=== PATIENT | male | born 1935 | race Caucasian/White ===

== ENCOUNTER 2017-02-10 10:02 | Outpatient (CLI) | payer MEDICARE, OTHER ==
[2017-02-10 10:20] LABS: BASOPHILS % 0.5 (0.0-1.5); EOSINOPHILS % 4.3 % (0.0-6.8); MEAN CORPUSCULAR HEMOGLOBIN 30.2 pg (28.0-34.0); MONOCYTES % 6.8 % (0.0-11.0); NEUTROPHILS # 2.8 # k/uL (1.4-7.7)
== END 2017-02-10 10:03 ==
LOC: MERGE 10:02 → LAB 10:02
PROVIDERS: ATTEND Family Medicine
DX: D50.9 Iron deficiency anemia, unspecified (principal)
CPT/HCPCS: 36415; 85025

== ENCOUNTER 2017-05-15 10:56 | Outpatient (CLI) | payer MEDICARE, OTHER ==
[2017-05-15 11:12] LABS: BASOPHILS % 0.9 (0.0-1.5); EOSINOPHILS % 4.8 % (0.0-6.8); MEAN CORPUSCULAR HEMOGLOBIN 31.3 pg (28.0-34.0); MEAN CORPUSCULAR VOLUME 94.9 fl (80.0-100.0); MONOCYTES % 6.9 % (0.0-11.0); NEUTROPHILS # 3.3 # k/uL (1.4-7.7)
[2017-05-15 12:10] LABS: eGFR (African) > 60; eGFR (Non-African) > 60
== END 2017-05-15 11:00 ==
LOC: LAB 10:56
PROVIDERS: ATTEND Family Medicine
DX: E03.9 Hypothyroidism, unspecified (principal); Z51.81 Encounter for therapeutic drug level monitoring
CPT/HCPCS: 36415; 80053; 84443; 85025

== ENCOUNTER 2017-07-12 15:34 | Outpatient (CLI) | payer MEDICARE, OTHER ==
[2017-07-15 00:08] VITALS: BP 111/64
== END 2017-07-12 15:35 ==
LOC: LAB 15:34
PROVIDERS: ATTEND Family Medicine
DX: Z79.899 Other long term (current) drug therapy (principal)
CPT/HCPCS: 36415; 80164

== ENCOUNTER 2017-07-14 20:20 | Emergency (ER) | payer MEDICARE, OTHER ==
[2017-07-14] MEDS ORDERED: 0.9 % SODIUM CHLORIDE 1,000 ML IV SCH (21:00)
[2017-07-14] MEDS ORDERED: 0.9 % SODIUM CHLORIDE 1,000 ML IV ONE (21:24)
[2017-07-14 21:35] LABS: MEAN CORPUSCULAR VOLUME 92.2 fl (80.0-100.0); MONOCYTES % 5.9 % (0.0-11.0); NEUTROPHILS # 3.3 # k/uL (1.4-7.7)
[2017-07-14] MEDS ORDERED: PHARMACY KEY 1 EACH EACH MC ONE (22:56)
[2017-07-14] MEDS ORDERED: FLUDROCORTISONE ACETATE 0.1 MG TABLET PO SCH (23:00)
[2017-07-15 00:08] VITALS: BP 111/64
--- NOTE | 2017-07-15 05:20 | ED Physician Documentation ---
Dizziness - HISTORIAN Historian: patient - HPI Stated Complaint: dizzines Chief Complaint: Dizziness Additional Information: weak, dizzy, worse when sitting or standing Timing: sudden onset Duration: constant Last known Well Date: 07/13/17 Last Known Well Time: 00:00 Severity: mild Associated Symptoms: weakness, light headedness Decreased Ability to Stand/ Walk: off balance, walks w/o assistance Usually: walks w/o assistance Worsened By: changing position Further Comments: no - ROS CONST: none EYES/ENT: none GI/: none MS/SKIN/LYMPH: none NEURO/PSYCH: none CVS/RESP: none - PAST HX Past History: other (Emmanuel's disease) Cardiac Disease: CAD Surgeries/Procedures: other (ortho, colon ressection) Immunizations: referred to PCP Allergies/Adverse Reactions: Allergies Allergy/AdvReac Type Severity Reaction Status Date / Time No Known Drug Allergies Allergy Verified 07/14/17 21:49 Home Medications: Ambulatory Orders Medication Instructions Recorded Divalproex Sodium [Divalproex 250 mg PO HS u2 01/20/17 Sodium Er] Divalproex Sodium [Divalproex 500 mg PO HS u2 01/20/17 Sodium Er] Quetiapine Fumarate 50 mg PO HS u2 01/20/17 Duloxetine HCl [Duloxetine HCl] 30 mg PO D 07/14/17 Flecainide Acetate [Tambocor] 50 mg PO D 07/14/17 Psyllium Seed [Metamucil] 1 packet PO PRN PRN 07/14/17 - SOCIAL HX Smoking History: non-smoker Alcohol Use: none Drug Use: none - FAMILY HX Family History: none - VITAL SIGNS Vital Signs: Vital Signs Temp Pulse Resp BP Pulse Ox 97.6 F 77 18 111/64 94 07/14/17 20:20 07/14/17 23:49 07/14/17 23:49 07/14/17 23:49 07/14/17 23:49 - REVIEWED ASSESSMENTS Nursing Assessment Reviewed: Yes Vitals Reviewed: Yes Progress - Results/Orders Results/Orders: CBC, CMP, PT/PTT/INR, UA, TROP, BNP, CXR, EKG ORDERED - Progress Progress: pt. given 1 liter NS and 0.1 mg Florinef p.o. with improved bp Critical Care Note - Critical Care Note Total Time (mins): 0 ED Results Lab/Radiology - Lab Results Lab Results: Lab Results 07/14/17 07/14/17 07/14/17 21:24 21:24 21:24 WBC RBC Hgb Hct MCV MCH MCHC RDW Plt Count Neut % (Auto) Lymph % (Auto) [place] % (Auto) Eos % (Auto) Baso % (Auto) Neut # (Auto) Lymph # (Auto) [place] # (Auto) Eos # (Auto) Baso # (Auto) Reactive Lymphs % Reactive Lymphs # PT 10.6 Seconds Seconds (9.4-11.6) INR 1.01 (0.9-1.2) APTT 26.7 Seconds Seconds (24.5-32.8) Sodium 136 mmol/L L mmol/L (137-145) Potassium 3.7 mmol/L mmol/L (3.5-5.1) Chloride 103 mmol/L mmol/L (98-107) Carbon Dioxide 24 mmol/L mmol/L (22-30) BUN 18 mg/dL mg/dL (9-20) Creatinine 1.50 mg/dL H mg/dL (0.66-1.25) Estimated Creat Clear 51 Est GFR ( Amer) 57 L (60 - ) Est GFR (Non-Af Amer) 47 L (60 - ) Glucose 138 mg/dL H mg/dL (74-106) Calcium 8.7 mg/dL mg/dL (8.4-10.2) Total Bilirubin 0.3 mg/dL mg/dL (0.2-1.3) AST 22 U/L U/L (15-46) ALT 22 U/L U/L (13-69) Alkaline Phosphatase 56 U/L U/L (38-126) Troponin I < 0.03 ng/mL L ng/mL (0.03-0.06) NT-Pro-B Natriuret Pep 246.6 pg/mL pg/mL (15.0-450.0) Total Protein 6.6 g/dL g/dL (6.3-8.2) Albumin 3.7 g/dL g/dL (3.5-5.0) 07/14/17 21:24 WBC 6.30 K/ul K/ul (4.00-12.00) RBC 4.36 M/ul M/ul (3.90-5.20) Hgb 13.1 g/dL g/dL (12.0-18.0) Hct 40.2 % % (37.0-53.0) MCV 92.2 fl fl (80.0-100.0) MCH 30.0 pg pg (28.0-34.0) MCHC 32.5 g/dL g/dL (30.0-36.0) RDW 13.4 % % (11.3-14.3) Plt Count 204 K/mm3 K/mm3 (130-400) Neut % (Auto) 52.8 % % (39.0-79.0) Lymph % (Auto) 36.8 % % (16.0-50.0) [place] % (Auto) 5.9 % % (0.0-11.0) Eos % (Auto) 2.0 % % (0.0-6.8) Baso % (Auto) 1.0 (0.0-1.5) Neut # (Auto) 3.3 # k/uL # k/uL (1.4-7.7) Lymph # (Auto) 2.3 # k/uL # k/uL (0.6-4.0) [place] # (Auto) 0.4 # k/uL # k/uL (0.0-0.9) Eos # (Auto) 0.1 # k/uL # k/uL (0.0-0.6) Baso # (Auto) 0.1 # k/uL # k/uL (0.0-0.5) Reactive Lymphs % 1.5 % % (0.0-5.0) Reactive Lymphs # 0.1 # k/uL # k/uL (0.0-0.8) PT INR APTT Sodium Potassium Chloride Carbon Dioxide BUN Creatinine Estimated Creat Clear Est GFR ( Amer) Est GFR (Non-Af Amer) Glucose Calcium Total Bilirubin AST ALT Alkaline Phosphatase Troponin I NT-Pro-B Natriuret Pep Total Protein Albumin - Radiology Radiology Impressions: cxr neg - Orders Orders: ED Orders Category Date Time Status Orthostatics 1T Care 07/14/17 20:[address] IV Lock 1T Care 07/14/17 20:45 Active CHEST 1 VIEW [RAD] Routine Exams 07/14/17 Ordered CBC/PLATELET/DIFF Routine Lab 07/14/17 21:24 Completed CMP Routine Lab 07/14/17 21:24 Completed NT-proBNP Routine Lab 07/14/17 21:24 Completed PT-INR Routine Lab 07/14/17 21:24 Completed PTT Routine Lab 07/14/17 21:24 Completed TROPONIN I (cTnI) Routine Lab 07/14/17 21:24 Completed URINALYSIS Routine Lab 07/14/17 21:00 Ordered 0.9 % Sodium Chloride [Normal Saline] 1,000 ml Med 07/14/17 21:00 Discontinued IV .Q1H 0.9 % Sodium Chloride [Normal Saline] 1,000 ml Med 07/14/17 21:24 Discontinued IV .STK-MED Fludrocortisone Acetate [Florinef] Med 07/14/17 23:00 Discontinued 0.1 mg PO DAILY [facility] Med 07/14/17 22:56 Discontinued 1 each MC .STK-MED ONE Oxygen Daily Oxygen 07/14/17 21:45 Ordered EKG WITH COMPARISON Routine Ther 07/14/17 Ordered Dizziness Physical Exam - Physical Exam General Appearance: no distress EENT: eye inspection normal, ENT inspection normal, pharynx normal, no signs of dehydration, ZURI, no nystagmus, TM's nml Neck: normal inspection, thyroid normal, supple Respiratory: no respiratory distress, breath sounds nml, chest non-tender CVS: reg rate & rhythm, heart sounds normal, equal pulses, murmur Abdomen: soft, no organomegaly, normal bowel sounds, no abdominal bruit, no distension, non-tender Skin: warm/dry, normal color Neuro: nml orientation, nml speech, nml cognition, mood/affect nml Extremities: non-tender, edema (mild) Cranial: nml as tested, no evidence of acute CVA Cerebellar: nml as tested Sensorimotor: motor nml, sensation nml Discharge Clincal Impression: Hypotension Qualifiers: Hypotension type: other hypotension type Qualified Code(s): I95.89 - Other hypotension Referrals: Andrea Corea MD [Primary Care Provider] - 2 Days Comments: discharged with script for Fludocort 0.1 mg #30 1 p.o.daily Condition: Stable Disposition: 01 HOME, SELF-CARE Decision to Admit: NO Decision Time: 23:40
[2017-07-15 06:22] LABS: APPEARANCE,URINE CLEAR (CLEAR); COLOR,URINE YELLOW (YELLOW); OCCULT BLOOD,URINE TRACE-INTACT (NEGATIVE); UROBILINOGEN URINE 0.2 Eu (0.2-1.0)
--- NOTE | 2017-07-15 06:53 | Diagnostic Imaging Report ---
SARA JACOBSON [facility] [address] [facility] [address] [place] [address]. [address] Report Submission Date: Jul 14, 2017 9:40:36 PM CDT Patient Study Name: BRYANT KWON Date: Jul 14, 2017 9:12:55 PM CDT Modality Type: CR Gender: M Description: CHEST : 31 Institution: [facility] Physician: SARA JACOBSON Ap portable upright radiographs of the chest Clinical history: Hypotension Technique: anterior /posterior portable upright Findings: There is cardiomegaly. The aorta is tortuous. Lung eduardo are clear. Arthritic changes are present the shoulders.. No pneumothorax or pleural effusion is seen. Impression: No acute pulmonary disease Cardiomegaly. Tortuous thoracic aorta Electronically signed on Jul 14, 2017 9:40:36 PM CDT by: Berry JACOBSON
== END 2017-07-14 23:49 | disposition home or self-care (01) ==
LOC: ED 20:20
DX: I95.89 Other hypotension (principal)
CPT/HCPCS: 71010; 80053; 81002; 83880; 84484; 85025; 85610; 85730; 87086; 93005; J7030; 87186; 96360; 99283; S1016

== ENCOUNTER → 2017-08-11 | Outpatient (CLI) | payer MEDICARE, OTHER ==
[2017-07-15 00:08] VITALS: BP 111/64
== END ==
LOC: LAB 07:52
PROVIDERS: ATTEND Internal Medicine Endocrinology, Diabetes & Metabolism
DX: I95.1 Orthostatic hypotension (principal); E03.9 Hypothyroidism, unspecified
CPT/HCPCS: 36415; 82533; 84439; 84443

== ENCOUNTER 2017-10-05 11:13 | Outpatient (CLI) | payer MEDICARE, OTHER ==
[2017-07-15 00:08] VITALS: BP 111/64
== END 2017-10-05 12:18 ==
LOC: LABRHC 11:13
PROVIDERS: ATTEND Physician Assistant
DX: N39.0 Urinary tract infection, site not specified (principal); R10.9 Unspecified abdominal pain
CPT/HCPCS: 87086; 87186

== ENCOUNTER 2017-10-11 10:53 | Outpatient (CLI) | payer MEDICARE, OTHER ==
[2017-07-15 00:08] VITALS: BP 111/64
[2017-10-11 11:02] LABS: APPEARANCE,URINE Clear (CLEAR); COLOR,URINE Yellow (YELLOW); OCCULT BLOOD,URINE Trace-lysed (NEGATIVE); PH URINE 7.5 (5.0 - 8.0); UROBILINOGEN URINE 0.2 Eu (0.2-1.0)
== END 2017-10-11 10:54 ==
LOC: LAB 10:53
PROVIDERS: ATTEND Family Medicine
DX: R30.0 Dysuria (principal)
CPT/HCPCS: 81002

== ENCOUNTER 2017-10-23 04:20 | Emergency (ER) | payer MEDICARE, OTHER ==
[2017-10-23] MEDS ORDERED: 0.9 % SODIUM CHLORIDE 1,000 ML IV ONE (04:50)
[2017-10-23] MEDS ORDERED: ACETAMINOPHEN 500 MG TABLET PO ONE (04:50)
[2017-10-23] MEDS ORDERED: GUAIFENESIN/CODEINE 10 ML S/F LIQUID DOSE CUP PO ONE (04:53)
[2017-10-23] MEDS ORDERED: IPRATROPIUM/ALBUTEROL SULFATE 3 ML AMPUL.NEB NEB STA (04:54)
[2017-10-23 04:59] LABS: BASOPHILS % 0.5 (0.0-1.5); EOSINOPHILS % 2.1 % (0.0-6.8); MEAN CORPUSCULAR HEMOGLOBIN 31.5 pg (28.0-34.0); MEAN CORPUSCULAR VOLUME 94.9 fl (80.0-100.0); MONOCYTES % 6.1 % (0.0-11.0); NEUTROPHILS # 6.3 # k/uL (1.4-7.7)
[2017-10-23 05:05] LABS: eGFR (African) > 60; eGFR (Non-African) 56
--- NOTE | 2017-10-23 05:40 | Diagnostic Imaging Report ---
[facility] [address] [facility].[address] [address] Report Submission Date: Oct 23, 2017 5:36:16 AM RENTAL CLERK Patient Study Name: BRYANT KWON Date: Oct 23, 2017 5:23:38 AM RENTAL CLERK Modality Type: CR Gender: M Description: CHEST : 31 Institution: [facility] Physician: UZMA SCOTT (PATTERN WEAVER) - ER The chest 2 views History: Cough, wheezing, fever Findings: Mild lingular atelectasis or a pericardial fat pad is observed. A loop recorder noted. The right lung is clear. Heart size is normal. There is no pleural effusion. Cervical fusion hardware is present. Calcified granulomas are noted. Impression: Mild lingular atelectasis versus pericardial fat pad. Electronically signed on Oct 23, 2017 5:36:16 AM RENTAL CLERK by: Shay JACOBSON
--- NOTE | 2017-10-23 05:45 | ED Physician Documentation ---
Upper Respiratory Symptoms - HISTORIAN Historian: patient - HPI Stated Complaint: Shortness of Breath Chief Complaint: Cough/ Upper Respiratory Onset: hours Context: multiple patients ( had influenza A) Associated Symptoms: fever, chills, productive cough Further Comments: yes (82 year old male patient brought in by son with complaints of SOB, cough, body aches and fever. Patient reports symptoms started last night. Son reports patient's was Influenza A positive.) - ROS CONST/EYES: denies: weakness, eye redness, eye itching, other CVS/RESP: none LYMPH: denies: leg swelling, rash, swollen glands, ankle swelling, other GI/: none NEURO/PSYCH: denies: fainting, dizziness, confusion, anxiety, depression, other MS/SKIN: denies: joint pain, muscle aches, rash, other - PAST HX Lung Disease: none PE Risk Factors: hypertension, other ("heart problem" - gluer Dr Hussein. ) Other History: other (seizures, ) Allergies/Adverse Reactions: Allergies Allergy/AdvReac Type Severity Reaction Status Date / Time No Known Drug Allergies Allergy Verified 07/14/17 21:49 Home Medications: Ambulatory Orders Medication Instructions Recorded Divalproex Sodium [Divalproex 250 mg PO HS u2 01/20/17 Sodium Er] Divalproex Sodium [Divalproex 500 mg PO HS u2 01/20/17 Sodium Er] Quetiapine Fumarate 25 mg PO HS u2 01/20/17 Duloxetine HCl [Duloxetine HCl] 60 mg PO D 07/14/17 Flecainide Acetate [Tambocor] 50 mg PO D 07/14/17 Psyllium Seed [Metamucil] 1 packet PO PRN PRN 07/14/17 Benzonatate [Tessalon Perles] 200 mg PO TID PRN #30 capsule 10/23/17 Oseltamivir Phosphate [Tamiflu] 75 mg PO BID #10 capsule 10/23/17 - SOCIAL HX Smoking History: cigarettes - FAMILY HX Family History: denies: none - VITAL SIGNS Vital Signs: Vital Signs Temp Pulse Resp BP Pulse Ox 98.1 F 75 28 H 176/98 95 10/23/17 04:20 10/23/17 05:30 10/23/17 04:20 10/23/17 04:20 10/23/17 05:30 - REVIEWED ASSESSMENTS Nursing Assessment Reviewed: Yes Vitals Reviewed: Yes Progress - Progress Progress: Patient is a poor medical technologist hematology. Son concerned about tamiflu and "patient's anticoagulant". Interactions checked with uptodate and epocrates. Clopidogrel may decrease serum concentrations of the active metabolite of Oseltamivir. Reviewed with patient and son. Reviewed discharge instructions with patient and son. Encouraged patient to return to ER if symptoms became worse. - EKG/XRAY/CT EKG: rhythm (SR, rate 83) ED Results Lab/Radiology - Lab Results Lab Results: Lab Results 10/23/17 10/23/17 04:50 04:50 WBC 11.40 K/ul K/ul (4.00-12.00) RBC 4.46 M/ul M/ul (3.90-5.20) Hgb 14.1 g/dL g/dL (12.0-18.0) Hct 42.4 % % (37.0-53.0) MCV 94.9 fl fl (80.0-100.0) MCH 31.5 pg pg (28.0-34.0) MCHC 33.2 g/dL g/dL (30.0-36.0) RDW 12.5 % % (11.3-14.3) Plt Count 208 K/mm3 K/mm3 (130-400) Neut % (Auto) 55.1 % % (39.0-79.0) Lymph % (Auto) 34.7 % % (16.0-50.0) [place] % (Auto) 6.1 % % (0.0-11.0) Eos % (Auto) 2.1 % % (0.0-6.8) Baso % (Auto) 0.5 (0.0-1.5) Neut # (Auto) 6.3 # k/uL # k/uL (1.4-7.7) Lymph # (Auto) 4.0 # k/uL # k/uL (0.6-4.0) [place] # (Auto) 0.7 # k/uL # k/uL (0.0-0.9) Eos # (Auto) 0.2 # k/uL # k/uL (0.0-0.6) Baso # (Auto) 0.1 # k/uL # k/uL (0.0-0.5) Reactive Lymphs % 1.5 % % (0.0-5.0) Reactive Lymphs # 0.2 # k/uL # k/uL (0.0-0.8) Sodium 136 mmol/L mmol/L (136-145) Potassium 4.0 mmol/L mmol/L (3.5-5.1) Chloride 99 mmol/L mmol/L (98-107) Carbon Dioxide 28 mmol/L mmol/L (22-30) BUN 20 mg/dL mg/dL (9-20) Creatinine 1.30 mg/dL H mg/dL (0.66-1.25) Estimated Creat Clear 59 Est GFR ( Amer) > 60 (60 - ) Est GFR (Non-Af Amer) 56 L (60 - ) Glucose 122 mg/dL H mg/dL (74-106) Calcium 9.4 mg/dL mg/dL (8.4-10.2) Total Bilirubin 0.2 mg/dL mg/dL (0.2-1.3) AST 24 U/L U/L (15-46) ALT 27 U/L U/L (13-69) Alkaline Phosphatase 94 U/L U/L (38-126) Total Protein 7.2 g/dL g/dL (6.3-8.2) Albumin 4.0 g/dL g/dL (3.5-5.0) - Radiology Radiology Impressions: The chest 2 views History: Cough, wheezing, fever Findings: Mild lingular atelectasis or a pericardial fat pad is observed. A loop recorder noted. The right lung is clear. Heart size is normal. There is no pleural effusion. Cervical fusion hardware is present. Calcified granulomas are noted. Impression: Mild lingular atelectasis versus pericardial fat pad. Electronically signed on Oct 23, 2017 5:36:16 AM MILITARY NURSE by: Shay Prara - Orders Orders: ED Orders Category Date Time Status Continuous EKG monitoring Q30M Care 10/23/17 04:50 Active Continuous Pulse Oximetry Q30M Care 10/23/17 04:[address] IV Lock 1T Care 10/23/17 04:50 Completed CHEST 2 VIEW [CHEST P.A.&LAT 2 VIEWS] [RAD] Stat Exams 10/23/17 Completed CBC/PLATELET/DIFF Stat Lab 10/23/17 04:50 Completed CMP Stat Lab 10/23/17 04:50 Completed INFLUENZA A&B Stat Lab 10/23/17 04:50 Ordered UA W/MICRO IF INDICATED Stat Lab 10/23/17 04:50 Ordered 0.9 % Sodium Chloride [Normal Saline] 1,000 ml Med 10/23/17 04:50 Discontinued IV NOW Acetaminophen [Tylenol Extra Strength] Med 10/23/17 04:50 Discontinued 1,000 mg PO NOW ONE Guaifenesin/Codeine Phosphate [Robitussin AC] Med 10/23/17 04:53 Discontinued 10 ml PO NOW ONE Ipratropium/Albuterol Sulfate [Duoneb] Med 10/23/17 04:54 Discontinued 3 ml NEB STAT STA EKG WITH COMPARISON Stat Ther 10/23/17 04:50 Ordered Upper Respiratory Symptoms - EXAM General Appearance: moderate distress EENT: eyes nml inspection, nml ENT inspection, lids & conjunct. nml, PERRL, ear nml, nose nml, pharynx nml, airway nml Respiratory: no resp. distress, breath sounds nml, no pain on inspiration, speaks full sentences, no pleuritic chest pain, other (productive cough) Abdomen: non-tender, no organomegaly, nml bowel sounds, no distention CVS: reg rate & rhythm, heart sounds normal, equal pulses, no murmur, no gallop , PMI nml, no JVD, no friction rub, 24 Skin: color nml, no rash, warm,dry Extremities: non-tender, normal range of motion, no evidence of injury, no edema , J, LUMBER ESTIMATOR Neuro/Psych: oriented x3, neuro intact, mood/affect nml, CN's nml as tested Discharge Clincal Impression: Influenza B Prescriptions: Benzonatate [Tessalon Perles] 200 mg PO TID PRN #30 capsule PRN Reason: Cough Oseltamivir Phosphate [Tamiflu] 75 mg PO BID #10 capsule Referrals: Andrea Corea MD [Primary Care Provider] - 2 Days Additional Instructions: Rest Have plenty of sleep and rest. Stay away from others while you have a cold or flu. Take simple painkillers Such as Tylenol or ibuprofen, to help relieve headaches, muscles aches and pains and fever. Keep hydrated (drink plenty of fluids) This will help keep your throat moist and replace fluid lost due to a fever and sweating. Plenty of water is best. Avoid caffeine and alcohol as they will make you more dehydrated. Eat soft food If you have a sore throat soft foods are easier to swallow. Foods such as chicken soup may help a sore throat and reduce mucous (sticky fluid). shift supervisor rn an over the counter decongestant such as pseudoped, dayquil and Nyquil at your pharmacy. You may want to try Vicks rub on your chest and/or feet. ( Caution: Dayquil and Nyquil contain 325mg of Tylenol/acetaminophen per tablespoon) Cough drops as needed for cough and sore throat. Increase your fluid intake juices, hot tea, non-caffeinated beverages Vitamin C may be helpful in decreasing the length of your cold. Use a humidifier in the room where you sleep. You can also sit in a steam filled bathroom 1-2 times a day. Tylenol every 4 hours 650mg -1000mg (do not exceed 4000mg in 24 hours) as needed for fever, pain and body aches. See your primary care doctor if your symptoms become worse or do not improve in the next 3-4 days. Condition: Stable Decision to Admit: NO Decision Time: 06:12
[2017-10-23 06:17] VITALS: BP 130/71
[2017-10-23 19:18] LABS: APPEARANCE,URINE CLEAR (CLEAR); COLOR,URINE YELLOW (YELLOW); OCCULT BLOOD,URINE 1+ (NEGATIVE)
[2017-10-23 19:19] LABS: PH URINE 7.5 (5.0 - 8.0); UROBILINOGEN URINE 0.2 Eu (0.2-1.0)
== END 2017-10-23 06:16 ==
LOC: ED 04:20
DX: J10.1 Influenza due to other identified influenza virus with other respiratory manifestations (principal); Z79.01 Long term (current) use of anticoagulants
CPT/HCPCS: 71020; 80053; 81002; 85025; 87400; 93005; 94640; 96360; 99283; J7030; S1016

== ENCOUNTER 2017-11-29 11:07 | Outpatient (CLI) | payer MEDICARE, OTHER ==
--- NOTE | 2017-11-29 12:20 | Diagnostic Imaging Report ---
PAULIE CISNEROS [facility] [address] [facility] [address] [address] Report Submission Date: Nov 29, 2017 12:12:10 PM SIMULATION TECHNICIAN Patient Study Name: BRYANT KWON Date: Nov 29, 2017 11:37:33 AM SIMULATION TECHNICIAN Modality Type: CR Gender: M Description: CHEST : 31 Institution: [facility] Physician: PAULIE CISNEROS Examination: PA and lateral chest. History: DYSPNEA AND WHEEZING, UNCERTAIN LENGTH OF TIME (Hx) / DYSPNEA, WHEEZING (DICOM Hx) / DYSPNEA, WHEEZING (Pt comments) Comparison exam: 23 October 2017 Findings: PA lateral chest demonstrate a normal cardiac and mediastinal silhouette. Mild tortuosity of the thoracic aorta. No focal infiltrate. No blunting of the costophrenic margins. Osseous structures are appropriate for age. Cervical fusion hardware. Impression: No acute appearing pulmonary process. Electronically signed on Nov 29, 2017 12:12:10 PM SIMULATION TECHNICIAN by: Daniel JACOBSON
--- NOTE | 2017-11-29 12:20 | Diagnostic Imaging Report ---
PAULIE CISNEROS [facility] [address] [facility] [address] [place] [address]. [address] Report Submission Date: Nov 29, 2017 12:10:29 PM MANAGER INTERMEDIATE Patient Study Name: BRYANT KWON Date: Nov 29, 2017 11:40:21 AM MANAGER INTERMEDIATE Modality Type: CR Gender: M Description: ABDOMEN : 31 Institution: [facility] Physician: PAULIE CISNEROS Examination: Abdomen series History: DIFFUSE ABDOMINAL PAIN, CONSTIPATION (Hx) / CONSTIPATION, DIFFUSE ABDOMINAL PAIN (DICOM Hx) / CONSTIPATION, DIFFUSE ABDOMINAL PAIN (Pt comments) Findings: 4 views obtained of the abdomen. No abnormal dilation of the large or small bowel. Air and stool throughout the large bowel. No suspicious calcification projecting over the renal fossa or the lower pelvic region. Splenic and pelvic calcifications. Degenerative spurring of the lumbar vertebral bodies. Impression: Normal amount of large bowel stool. No obstruction. No suspicious calcifications by plain film sensitivity. Electronically signed on Nov 29, 2017 12:10:29 PM MANAGER INTERMEDIATE by: Daniel JACOBSON
[2017-11-29 12:29] LABS: eGFR (African) > 60; eGFR (Non-African) > 60
== END 2017-11-29 11:10 ==
LOC: LAB 11:07
PROVIDERS: ATTEND Family Medicine
DX: R06.09 Other forms of dyspnea (principal); R06.2 Wheezing; R10.84 Generalized abdominal pain; K59.01 Slow transit constipation
CPT/HCPCS: 36415; 71020; 74020; 80053

== ENCOUNTER 2017-12-15 10:56 | Emergency (ER) | payer MEDICARE, OTHER ==
[2017-12-15] MEDS ORDERED: 0.9 % SODIUM CHLORIDE 1,000 ML IV ONE (11:16)
[2017-12-15 11:57] LABS: BASOPHILS % 0.6 (0.0-1.5); EOSINOPHILS % 3.7 % (0.0-6.8); MEAN CORPUSCULAR HEMOGLOBIN 31.4 pg (28.0-34.0); MEAN CORPUSCULAR VOLUME 94.3 fl (80.0-100.0); MONOCYTES % 5.2 % (0.0-11.0); NEUTROPHILS # 3.4 # k/uL (1.4-7.7)
[2017-12-15 12:25] LABS: eGFR (African) > 60; eGFR (Non-African) > 60
--- NOTE | 2017-12-15 12:59 | ED Physician Documentation ---
Dizziness - HISTORIAN Historian: patient, other (son and daughter in law) - HPI Stated Complaint: Dizzy Chief Complaint: Dizziness Timing: cannot confirm onset Associated Symptoms: weakness, light headedness Decreased Ability to Stand/ Walk: off balance Usually: uses a cane Worsened By: changing position Further Comments: yes (82 year old male patient brought in by family with complaints of dizziness. Family reports patient was so dizzy he could not get out of bed this morning. Family reports chronic history of dizziness and orthostatic hypotension.) - ROS CONST: none EYES/ENT: none GI/: none MS/SKIN/LYMPH: none NEURO/PSYCH: none CVS/RESP: none - PAST HX Past History: hypertension, other (dementia, alzheimers, bipolar) Cardiac Disease: other (chronic dizziness) Allergies/Adverse Reactions: Allergies Allergy/AdvReac Type Severity Reaction Status Date / Time No Known Drug Allergies Allergy Verified 12/15/17 11:54 Home Medications: Ambulatory Orders Medication Instructions Recorded Divalproex Sodium [Divalproex 250 mg PO HS u2 01/20/17 Sodium Er] Divalproex Sodium [Divalproex 500 mg PO HS u2 01/20/17 Sodium Er] Quetiapine Fumarate 25 mg PO HS u2 01/20/17 Duloxetine HCl [Duloxetine HCl] 60 mg PO D 07/14/17 Flecainide Acetate [Tambocor] 50 mg PO D 07/14/17 Psyllium Seed [Metamucil] 1 packet PO PRN PRN 07/14/17 Benzonatate [Tessalon Perles] 200 mg PO TID PRN #30 capsule 10/23/17 Meclizine HCl [Antivert] 12.5 mg PO TID #30 tablet 12/15/17 - SOCIAL HX Smoking History: non-smoker - FAMILY HX Family History: denies: none - VITAL SIGNS Vital Signs: Vital Signs Temp Pulse Resp BP Pulse Ox 98.5 F 70 16 121/92 95 12/15/17 11:43 12/15/17 12:30 12/15/17 11:43 12/15/17 11:43 12/15/17 12:30 - REVIEWED ASSESSMENTS Nursing Assessment Reviewed: Yes Vitals Reviewed: Yes Progress - Progress Progress: 1300 Lab results reviewed with family, 1L nS infused. Patient continues to c/o dizziness. Attempted walking in dobbs; gait unsteady, c/o severe headache. will progress with head CT, tylenol and meclizine. 1400 Patient states he feels better, no dizziness with standing. Stood patient up - states he feels better. Will discharge home with prn Meclizine and f/u with Dr Hussein. ED Results Lab/Radiology - Lab Results Lab Results: Lab Results 12/15/17 12/15/17 12/15/17 11:50 11:50 11:50 WBC 6.90 K/ul K/ul (4.00-12.00) RBC 4.63 M/ul M/ul (3.90-5.20) Hgb 14.5 g/dL g/dL (12.0-18.0) Hct 43.6 % % (37.0-53.0) MCV 94.3 fl fl (80.0-100.0) MCH 31.4 pg pg (28.0-34.0) MCHC 33.3 g/dL g/dL (30.0-36.0) RDW 12.7 % % (11.3-14.3) Plt Count 246 K/mm3 K/mm3 (130-400) Neut % (Auto) 49.6 % % (39.0-79.0) Lymph % (Auto) 39.1 % % (16.0-50.0) [place] % (Auto) 5.2 % % (0.0-11.0) Eos % (Auto) 3.7 % % (0.0-6.8) Baso % (Auto) 0.6 (0.0-1.5) Neut # (Auto) 3.4 # k/uL # k/uL (1.4-7.7) Lymph # (Auto) 2.7 # k/uL # k/uL (0.6-4.0) [place] # (Auto) 0.4 # k/uL # k/uL (0.0-0.9) Eos # (Auto) 0.3 # k/uL # k/uL (0.0-0.6) Baso # (Auto) 0.0 # k/uL # k/uL (0.0-0.5) Reactive Lymphs % 1.9 % % (0.0-5.0) Reactive Lymphs # 0.1 # k/uL # k/uL (0.0-0.8) Sodium 142 mmol/L mmol/L (136-145) Potassium 4.2 mmol/L mmol/L (3.5-5.1) Chloride 102 mmol/L mmol/L (98-107) Carbon Dioxide 28 mmol/L mmol/L (22-30) BUN 16 mg/dL mg/dL (9-20) Creatinine 1.20 mg/dL mg/dL (0.66-1.25) Estimated Creat Clear 64 Est GFR ( Amer) > 60 (60 - ) Est GFR (Non-Af Amer) > 60 (60 - ) Glucose 96 mg/dL mg/dL (74-106) Calcium 9.5 mg/dL mg/dL (8.4-10.2) Total Bilirubin 1.0 mg/dL mg/dL (0.2-1.3) AST 26 U/L U/L (15-46) ALT 22 U/L U/L (13-69) Alkaline Phosphatase 67 U/L U/L (38-126) Troponin I < 0.03 ng/mL L ng/mL (0.03-0.06) Total Protein 7.4 g/dL g/dL (6.3-8.2) Albumin 4.3 g/dL g/dL (3.5-5.0) - Orders Orders: ED Orders Category Date Time Status Continuous EKG monitoring Q30M Care 12/15/17 11:16 Active Continuous Pulse Oximetry Q30M Care 12/15/17 11:[address] IV Lock 1T Care 12/15/17 11:16 Active CBC/PLATELET/DIFF Stat Lab 12/15/17 11:50 Completed CMP Stat Lab 12/15/17 11:50 Completed TROPONIN I (cTnI) Stat Lab 12/15/17 11:50 Completed UA W/MICRO IF INDICATED Stat Lab 12/15/17 11:16 Ordered VALPROIC ACID LEVEL Stat Lab 12/15/17 11:50 Received 0.9 % Sodium Chloride [Normal Saline] 1,000 ml Med 12/15/17 11:16 Discontinued IV NOW Dizziness Physical Exam - Physical Exam General Appearance: mild distress EENT: eye inspection normal, ENT inspection normal, pharynx normal, no signs of dehydration, ZURI, no nystagmus, TM's nml Respiratory: no respiratory distress, breath sounds nml, chest non-tender CVS: reg rate & rhythm, heart sounds normal, equal pulses, no murmur, no gallop , PMI nml, no JVD, no friction rub, 24 Abdomen: soft, no organomegaly, normal bowel sounds, no abdominal bruit, no distension Skin: normal color, warm/dry, NR, INT, PAL, DR Neuro: nml orientation, nml speech, nml cognition, mood/affect nml Extremities: non-tender, normal range of motion, no evidence of injury, no edema , other (gait unsteady) Cranial: nml as tested, no evidence of acute CVA Cerebellar: nml as tested Sensorimotor: motor nml, sensation nml Discharge Clincal Impression: Dizziness Prescriptions: Meclizine HCl [Antivert] 12.5 mg PO TID #30 tablet Referrals: Andrea Corea MD [Primary Care Provider] - 2 Days Additional Instructions: Continue all medications as prescribed Drink at least 64 oz of fluids daily If dizziness becomes worse or does not resolve, you may want to consider follow up with Dr Hussein Condition: Stable Disposition: 01 HOME, SELF-CARE Decision to Admit: NO Decision Time: 12:59
[2017-12-15] MEDS ORDERED: MECLIZINE HCL 25 MG TABLET PO ONE (13:13)
[2017-12-15] MEDS ORDERED: ACETAMINOPHEN 500 MG TABLET PO ONE (13:13)
[2017-12-15 14:23] VITALS: BP 142/89
--- NOTE | 2017-12-15 17:44 | Diagnostic Imaging Report ---
UZMA LEUNG (END USER CONSULTANT) - ER [facility] [id number] [facility] [address] [place], [place]. [address] Report Submission Date: Dec 15, 2017 2:05:26 PM STE[employer] HEL[employer] Patient Study Name: BRYANT KWON Date: Dec 15, 2017 1:47:59 PM STE[employer] P[employer] HELPER Modality Type: CT\SR Gender: M Description: CT HEAD W/O CONTRAST : 31 Institution: [facility] Physician: UZMA LEUNG (ROBBY) - ER Examination: CT head without contrast History: CT HEAD W/O CONTRAST, HEADACHE/ DIZZINESS FOR A FEW YEARS, WORSENING ( Hx) / HEADACHE/ DIZZINESS (DICOM Hx) Comparison exam: None available Technique: Noncontrast head CT protocol. Findings: Ventricles and sulci are prominent. Cerebrocerebellar parenchyma demonstrates periventricular low attenuation consistent with small vessel disease. No evidence for parenchymal hemorrhage. No evidence for mass or mass effect. No midline shift. No extra axial fluid collections. Jeramy cisterna magna. Partial visualization of the paranasal sinuses demonstrate scattered mucous thickening. Mastoid air cells, orbits, skull and scalp without gross irregularity. Impression: Advanced age related changes. No acute parenchymal process. No hemorrhage. Electronically signed on Dec 15, 2017 2:05:26 PM STEEL POURER HELPER by: Daniel JACOBSON
[2017-12-16 07:01] LABS: APPEARANCE,URINE CLEAR (CLEAR); COLOR,URINE YELLOW (YELLOW); OCCULT BLOOD,URINE NEGATIVE (NEGATIVE); PH URINE 8.5 (5.0 - 8.0)
[2017-12-16 07:02] LABS: UROBILINOGEN URINE 0.2 Eu (0.2-1.0)
== END 2017-12-15 14:22 | disposition home or self-care (01) ==
LOC: ED 10:56
DX: R42 Dizziness and giddiness (principal); I10 Essential (primary) hypertension; G30.9 Alzheimer's disease, unspecified
CPT/HCPCS: 70450; 80053; 80164; 81002; 84484; 85025; 93005; J7030; 96365; 99283; S1016

== ENCOUNTER 2018-02-20 10:21 | Outpatient (CLI) | payer MEDICARE, OTHER ==
[2018-02-20 11:02] LABS: BASOPHILS % 0.2 (0.0-1.5); EOSINOPHILS % 3.3 % (0.0-6.8); MEAN CORPUSCULAR VOLUME 95.9 fl (80.0-100.0); MONOCYTES % 5.7 % (0.0-11.0); NEUTROPHILS # 3.4 # k/uL (1.4-7.7)
[2018-02-20 12:18] LABS: eGFR (African) > 60; eGFR (Non-African) > 60
== END 2018-02-20 10:22 ==
LOC: LAB 10:21
PROVIDERS: ATTEND Family Medicine
DX: R20.2 Paresthesia of skin (principal); E03.9 Hypothyroidism, unspecified; G62.9 Polyneuropathy, unspecified; Z51.81 Encounter for therapeutic drug level monitoring
CPT/HCPCS: 36415; 80053; 80164; 82607; 82746; 84443; 85025

== ENCOUNTER 2018-07-02 14:00 | Outpatient (CLI) | payer MEDICARE, OTHER ==
[2018-07-02 14:31] LABS: BASOPHILS % 0.3 (0.0-1.5); EOSINOPHILS % 5.4 % (0.0-6.8); MEAN CORPUSCULAR HEMOGLOBIN 30.5 pg (28.0-34.0); MEAN CORPUSCULAR VOLUME 91.8 fl (80.0-100.0); MONOCYTES % 6.6 % (0.0-11.0); NEUTROPHILS # 4.5 # k/uL (1.4-7.7)
[2018-07-02 15:10] LABS: eGFR (Non-African) 56
== END 2018-07-02 14:02 ==
LOC: LAB 14:00
PROVIDERS: ATTEND Family Medicine
DX: L03.119 Cellulitis of unspecified part of limb (principal); Z51.81 Encounter for therapeutic drug level monitoring
CPT/HCPCS: 36415; 80053; 85025; 85651; 86038